=== PATIENT | female | born 1995 | race Caucasian/White ===

== ENCOUNTER 2017-07-19 16:43 | Emergency (ER) | payer SELFPAY ==
[2017-07-19 16:54] VITALS: BP 138/74; PULSE 90; RESP 18; TEMP 99.2; O2SAT 98
[2017-07-19] MEDS ORDERED: Albuterol-Ipratrop 3 mg / 0.5 (3 ml) UD INH STA (17:33)
[2017-07-19] MEDS ORDERED: Albuterol-Ipratrop 3 mg / 0.5 (3 ml) UD ONE (17:42)
--- NOTE | 2017-07-19 17:56 | ED PDOC ---
HPI: Asthma Time Seen by Provider: 07/19/17 17:05 Chief Complaint (Nursing): Shortness Of Breath Chief Complaint (Provider): asthma History Per: Patient History/Exam Limitations: no limitations Onset/Duration Of Symptoms: Days (x3) Current Symptoms Are (Timing): Still Present Additional Complaint(s): Joana Sun is a 22 year old female with previous medical history of asthma, who presents to the emergency department with a complaint of worsening shortness of breath associated with bilateral chest wall pain, coughing with clear sputum, runny nose, nasal congestion and chills. Denied bloody cough, fever, leg pain or swelling. Patient stated she has short-term relief from albuterol inhaler use. PMD: none provided Past Medical History Reviewed: Historical Data, Nursing Documentation, Vital Signs Vital Signs: Last Vital Signs Temp 99.2 F 07/19/17 16:52 Pulse 90 07/19/17 16:52 Resp 18 07/19/17 16:52 BP 138/74 07/19/17 16:52 Pulse Ox 98 07/19/17 16:52 - Medical History PMH: Asthma, Cardia Arrhythmia, HTN, Seizures (noncompliant with medications) Denies: Chronic Kidney Disease - Surgical History Surgical History: No Surg Hx - Family History Family History: States: Hypertension - Social History Current smoker - smoking cessation education provided: No (vapes) Alcohol: Occasional Drugs: Denies - Immunization History Hx Tetanus Toxoid Vaccination: No Hx Influenza Vaccination: No Hx Pneumococcal Vaccination: No - Home Medications Home Medications: Ambulatory Orders Medication Instructions Recorded traMADol [Ultram] 50 mg PO Q8 #20 tab 08/31/16 Albuterol 0.083% [Albuterol 3 ml IH Q4 PRN #50 neb 07/19/17 Sulfate 3 Ml] Albuterol HFA [Ventolin HFA 90 2 puff IH Q4H PRN #1 inh 07/19/17 mcg/actuation (8 g)] Prednisone 50 mg PO DAILY #4 tablet 07/19/17 - Allergies Allergies/Adverse Reactions: Allergies Allergy/AdvReac Type Severity Reaction Status Date / Time aspirin Allergy RASH Verified 07/19/17 16:52 iodine Allergy RASH Verified 07/19/17 16:52 seafood Allergy RASH Uncoded 07/19/17 16:52 Review of Systems ROS Statement: Except As Marked, All Systems Reviewed And Found Negative Constitutional: Positive for: Chills. Negative for: Fever ENT: Positive for: Nose Discharge, Nose Congestion Cardiovascular: Positive for: Chest Pain (bilaterally on sides) Respiratory: Positive for: Cough, Shortness of Breath, Sputum (clear). Negative for: Hemoptysis Musculoskeletal: Negative for: Leg Pain (or swelling) - ECG O2 Sat by Pulse Oximetry: 98 (RA) Pulse Ox Interpretation: Normal Medical Decision Making Medical Decision Making: Initial Impression: Asthma exacerbation Differential Diagnosis: Pneumonia; bronchitis; influenza Initial Plan: * EKG * CXR * Duoneb 9ml INH * Solu-medrol 125mg IM * Urine culture * Influenza A B * Urinalysis Time: 1837 --CXR FINDINGS: LUNGS: No active pulmonary disease. PLEURA: No significant pleural effusion identified. No pneumothorax apparent. CARDIOVASCULAR: Normal. OSSEOUS STRUCTURES: No significant abnormalities. VISUALIZED UPPER ABDOMEN: Normal. OTHER FINDINGS: None. IMPRESSION: No active disease. 1900 Pt feels better. Stable for dc. Scribe Attestation: Documented by Rubina Grande, acting as a scribe for Lesly Mcmahon MD. Provider Scribe Attestation: All medical record entries made by the Scribe were at my direction and personally dictated by me. I have reviewed the chart and agree that the record accurately reflects my personal performance of the history, physical exam, medical decision making, and the department course for this patient. I have also personally directed, reviewed, and agree with the discharge instructions and disposition. Disposition - Clinical Impression Clinical Impression: Asthma exacerbation Counseled Patient/Family Regarding: Studies Performed, Diagnosis, Need For Followup, Rx Given - Disposition Referrals: at [place] [Outside] - 07/21/17 ([facility] [place]) Disposition: Routine/Home Disposition Time: 19:00 Condition: IMPROVED Prescriptions: Albuterol 0.083% [Albuterol Sulfate 3 Ml] 3 ml IH Q4 PRN #50 neb PRN Reason: asthma Albuterol HFA [Ventolin HFA 90 mcg/actuation (8 g)] 2 puff IH Q4H PRN #1 inh PRN Reason: ASTHMA Prednisone 50 mg PO DAILY #4 tablet Instructions: Asthma (ED) Forms: [facility] ED School/Work Excuse
[2017-07-19 18:00] LABS: RBC URINE 20 /hpf (0-3); URINE BACTERIA RARE (<OCC); URINE BILIRUBIN NEGATIVE (NEGATIVE); URINE BLOOD MODERATE (NEGATIVE); URINE COLOR YELLOW (YELLOW); URINE GLUCOSE (UA) NEG (Normal); URINE KETONE NEGATIVE (NEGATIVE); URINE LEUKOCYTE ESTERASE LARGE Leu/uL (Negative); URINE PROTEIN NEGATIVE (NEGATIVE); URINE UROBILINOGEN 0.2-1.0 mg/dL (0.2-1.0); WBC URINE 16 /hpf (0-5)
--- NOTE | 2017-07-19 18:38 | RAD ---
HISTORY: SOB CHEST PAIN COMPARISON: No prior. TECHNIQUE: Chest PA and lateral FINDINGS: LUNGS: No active pulmonary disease. PLEURA: No significant pleural effusion identified. No pneumothorax apparent. CARDIOVASCULAR: Normal. OSSEOUS STRUCTURES: No significant abnormalities. VISUALIZED UPPER ABDOMEN: Normal. OTHER FINDINGS: None. IMPRESSION: No active disease.
--- NOTE | 2017-07-20 07:31 | CARD ---
APPROVED REPORT EKG Measurement Heart [id number] <Conclusion> Normal sinus rhythm Normal ECG
== END 2017-07-19 20:00 | disposition home or self-care (01) ==
LOC: H.ER 16:43
DX: J45.901 Unspecified asthma with (acute) exacerbation (principal); I10 Essential (primary) hypertension; Z91.14 Patient's other noncompliance with medication regimen
CPT/HCPCS: 71020; 81003; 81025; 87086; 87804; 93005; 96372; 99282; J2930